=== PATIENT | male | born 1930 | race Caucasian/White ===

== ENCOUNTER 2017-04-29 16:52 | Emergency (ER) | payer MEDICARE, BC | END 2017-04-29 17:23 | disposition home or self-care (01) | LOC: SCSER 16:52 | DX: K59.00 Constipation, unspecified (principal); I25.2 Old myocardial infarction | CPT/HCPCS: 99283 ==

== ENCOUNTER 2017-10-16 20:39 | Emergency (ER) | payer MEDICARE, BC | END 2017-10-16 21:22 | disposition home or self-care (01) | LOC: SCSER 20:39 | DX: K59.09 Other constipation (principal); I25.2 Old myocardial infarction | CPT/HCPCS: 99283 ==

== ENCOUNTER 2018-03-24 11:01 | Emergency (ER) | payer MEDICARE, BC ==
[2018-03-24 15:50] LABS: #Eosinphils 0.1 thou/uL (0.0-0.7); #Lymphocytes 0.6 thou/uL (1.20-3.40); #Monocytes 0.7 thou/uL (0.11-0.59); %Basophils 0.5 % (0.0-1.0); %Eosinophils 1.2 % (0.0-10.0); %Lymphocytes 7.5 % (21.0-51.0); %Monocytes 8.4 % (0.0-10.0); %Neutrophils 82.4 % (42.0-75.0); Hemoglobin 14.2 g/dL (14.0-18.0); Mean Corpuscular HGB CONC 32.9 g/dL (32.0-36.0); Mean Corpuscular Hemoglobin 31.2 pg (27.0-31.0); Mean Corpuscular Volume 94.9 fL (78.0-98.0); Mean Platelet Volume 7.1 fL (7.4-10.4); Platelet Count 268 thou/uL (130-400); RBC Distribution Width 11.4 % (11.5-14.5); Red Blood Cell (RBC) Count 4.53 mill/uL (4.70-6.10); White Blood Cell (WBC) Count 8.5 thou/uL (4.8-10.8)
[2018-03-24 16:15] LABS: ALT (SGPT) 25 U/L (8-55); AST (SGOT) 21 U/L (5-34); Albumin 3.9 g/dL (3.4-4.8); Alkaline Phosphatase 144 U/L (40-150); Anion Gap 15 mmol/L (10-20); BUN (Urea Nitrogen) 16 mg/dL (8.4-25.7); Calc. Creatinine Clearance 0 mL/min (70-130); Calcium 9.5 mg/dL (7.8-10.44); Carbon Dioxide 24 mmol/L (23-31); Chloride 100 mmol/L (98-107); Estimated GFR-MDRD 85; Globulin 2.8 g/dL (2.4-3.5); Glucose 93 mg/dL (83-110); Lipase 13 U/L (8-78); Potassium 4.3 mmol/L (3.5-5.1); Protein, Total 6.7 g/dL (5.8-8.1); Sodium 135 mmol/L (136-145)
== END 2018-03-24 15:50 | disposition left against medical advice (07) ==
LOC: ERS 11:01 → ER/OP 11:01 → ERS 15:50
DX: Z53.21 Procedure and treatment not carried out due to patient leaving prior to being seen by health care provider (principal)
CPT/HCPCS: 36415; 80053; 83690; 85025

== ENCOUNTER 2018-09-11 15:42 | Emergency (ER) | payer MEDICARE, BC | END 2018-09-11 16:45 | disposition left against medical advice (07) | LOC: SCSER 15:42 | DX: K59.00 Constipation, unspecified (principal); I25.2 Old myocardial infarction | CPT/HCPCS: 99283 ==